=== PATIENT | male | born 1960 | race Caucasian/White ===

== ENCOUNTER 2021-06-13 20:23 | Inpatient (IN) | payer OTHER ==
[~2021-06-13] VITALS: Ht 175.3 cm; Wt 85.4 kg
[~2021-06-13 20:23] MED LIST: ALBU90OI INH; ASPI81CH PO; Augmentin 875-1 EACH PO; CHOL10002 PO; CITA20 PO; Colace100 MG PO; DOC250 PO; FINA5 PO; GABA300 PO; IBUP600 PO; Lisinopril2.5 MG PO; MORP15ER PO; OXYC5 PO; Percocet 7.5-31 EACH PO; SENN187 PO; Vitamin B-121000 MCG PO; Zofran Odt4 MG SL
[2021-06-13 20:56] LABS: BASOPHILS ABSOLUTE AUTO 0.03 K/mm3 (0.00-0.23); BASOPHILS PERCENT AUTO 0 % (0-2); EOSINOPHILS PERCENT AUTO 0 % (0-6); Hematocrit 47.8 % (37.0-53.0); Hemoglobin 16.8 g/dL (13.5-17.5); IMMATURE GRAN ABSOLUTE AUTO 0.06 K/mm3 (0.00-0.10); IMMATURE GRAN PERCENT AUTO 0 % (0-1); LYMPHOCYTES ABSOLUTE AUTO 1.09 K/mm3 (0.84-5.20); LYMPHOCYTES PERCENT AUTO 8 % (21-46); MONOCYTES ABSOLUTE AUTO 1.08 K/mm3 (0.16-1.47); MONOCYTES PERCENT AUTO 7 % (4-13); Mean Corpuscular HGB 31.4 pg (26.0-34.0); Mean Corpuscular HGB Conc 35.1 g/dL (31.5-36.5); Mean Corpuscular Volume 89 fL (80-100); Mean Platelet Volume 10.7 fL (9.1-12.4); NEUTROPHILS ABSOLUTE AUTO 12.28 K/mm3 (1.96-9.15); NEUTROPHILS PERCENT AUTO 85 % (41-73); Platelet Count 283 K/mm3 (150-400); RDW Coefficient Variation 11.6 % (11.7-14.2); RDW Standard Deviation 37.7 fL (35.1-46.3); Red Blood Cell Count 5.35 M/mm3 (4.30-5.90); White Blood Cell Count 14.54 K/mm3 (4.00-11.30)
[2021-06-13 21:03] LABS: Source, Urine Catheter
[2021-06-13 21:09] LABS: Appearance, Urine Cloudy (Clear); Bilirubin, Urine Neg (Neg); Blood, Urine 2+ (Neg); Color, Urine Yellow (P-Yellow); Glucose Qualitative, Urine Neg (Neg); Ketones, Urine 1+ (Neg); Leukocyte Esterase, Urine 3+ (Neg); Nitrite, Urine Neg (Neg); Protein, Urine 2+ (Neg); Specific Gravity, Urine 1.015 (1.003-1.022); Urobilinogen, Urine NORM (Normal)
[2021-06-13 21:15] LABS: Alanine Aminotransfer (ALT/SGP 85 U/L (12-78); Albumin/Globulin Ratio 0.7 (0.8-1.8); Alk Phos 103 U/L (50-136); Anion Gap 9 mmol/L (6-16); Aspartate Aminotrans (AST/SGOT 240 U/L (12-37); Bilirubin, Total 0.8 mg/dL (0.1-1.0); Blood Urea Nitrogen 20 mg/dL (8-24); Bun/Creatinine Ratio 23.5 (12.0-20.0); CO2, Blood 26 mmol/L (21-32); Calcium, Blood 9.6 mg/dL (8.5-10.1); Chloride, Blood 100 mmol/L (98-108); Creatinine, Blood 0.85 mg/dL (0.60-1.20); Globulin, Blood 5.4 g/dL (2.2-4.0); Glomerular Filtration Rate >60 (60-); Glucose, Blood 125 mg/dL (70-99); Potassium, Blood 4.5 mmol/L (3.5-5.5); Sodium, Blood 135 mmol/L (136-145); Total Protein, Blood 9.4 g/dL (6.4-8.2)
[2021-06-13 21:21] LABS: Amorphous Mod (0-Heavy); Bacteria Many /hpf; Granular Casts Rare /lpf (0); Red Blood Cells, Urine 0-2 /hpf (0-2); Squamous Epithelial Cells Few /hpf (Few)
[2021-06-13 21:55] LABS: Creatine Kinase MB 215.3 ng/mL (0.0-3.6)
[2021-06-13 22:40] LABS: Creatine Kinase MB Index 1.4 (0.0-4.0)
--- NOTE | 2021-06-14 06:41 | NUR ---
PT ARRIVED TO THE UNIT AND WASA TRANSFERED TO PCU BED. PT WAS ALERT AND ABLE TO PROVIDE SOME OF HIS HISTORY BUT WAS NOT SURE ON WHAT MEDICATIONS HE TAKES. PT HAS DIFFICULTY EXPRESSING HIMSELF VERBALLY AND BECOMES FRUSTRATED. PT HAS SCATTERED WOUND AND SEVERELY SWOLLEN LLE. PT HAS MAINTAINED O2 SATS >92% ON RM AIR. WILL REPORT TO ONCOMING RN.
[2021-06-14 07:11] LABS: Anion Gap 10 mmol/L (6-16); Blood Urea Nitrogen 25 mg/dL (8-24); Bun/Creatinine Ratio 21.7 (12.0-20.0); CO2, Blood 23 mmol/L (21-32); Chloride, Blood 103 mmol/L (98-108); Creatinine, Blood 1.15 mg/dL (0.60-1.20); Glomerular Filtration Rate >60 (60-); Glucose, Blood 135 mg/dL (70-99); Potassium, Blood 4.3 mmol/L (3.5-5.5); Sodium, Blood 136 mmol/L (136-145)
[2021-06-14 07:12] LABS: Calcium, Blood 9.1 mg/dL (8.5-10.1)
[2021-06-14 07:19] LABS: BASOPHILS ABSOLUTE AUTO 0.03 K/mm3 (0.00-0.23); BASOPHILS PERCENT AUTO 0 % (0-2); EOSINOPHILS PERCENT AUTO 0 % (0-6); Hematocrit 49.2 % (37.0-53.0); IMMATURE GRAN ABSOLUTE AUTO 0.08 K/mm3 (0.00-0.10); IMMATURE GRAN PERCENT AUTO 1 % (0-1); LYMPHOCYTES ABSOLUTE AUTO 1.16 K/mm3 (0.84-5.20); LYMPHOCYTES PERCENT AUTO 8 % (21-46); MONOCYTES PERCENT AUTO 11 % (4-13); Mean Corpuscular HGB 31.4 pg (26.0-34.0); Mean Corpuscular HGB Conc 34.6 g/dL (31.5-36.5); Mean Corpuscular Volume 91 fL (80-100); Mean Platelet Volume 11.1 fL (9.1-12.4); NEUTROPHILS ABSOLUTE AUTO 11.02 K/mm3 (1.96-9.15); NEUTROPHILS PERCENT AUTO 80 % (41-73); Platelet Count 241 K/mm3 (150-400); RDW Coefficient Variation 11.9 % (11.7-14.2); RDW Standard Deviation 39.2 fL (35.1-46.3); Red Blood Cell Count 5.42 M/mm3 (4.30-5.90); White Blood Cell Count 13.79 K/mm3 (4.00-11.30)
[2021-06-14 16:43] LABS: SARS-Cov-2 (COVID-19) PCR, MMC NEGATIVE (NEGATIVE)
--- NOTE | 2021-06-14 17:35 | NUR ---
SHIFT SUMMARY; ASSUMED CARE AT 0700, REPORT FROM BRITANY. Rene/Rene/OX4 DURING SHIFT. EXRESIVE DYSPHAGIA AT TIMES DUE TO PREVIOUS CVA. NS INFUSING AT 100ML/HR, NAVAS CATH IN PLACE DRAINING TEA COLORED URINE. SCABS/SCRAPES TO SCALP OPEN TO AIR, LEFT LEG SWOLLEN FROM HIP TO FOOT. LAURENT DUPLEX COMPLETE TODAY. OPEN RAW SORES BILATERALLY ON LEGS AND LEFT INNER THIGH FROM FALL AT HOME. MOVES RIGHT LEG ALTHOUGH WEAK. DIFFICULTY LIFTING LEFT LEG. MOVES BILATERAL ARMS. ASSISTED WITH REPOSITIONING DURING SHIFT. NO ACUTE CHANGES DURING SHIFT. WILL CONTINUE TO MONITOR AND TREAT UNTIL CHANGE OF SHIFT.
[2021-06-14] MEDS ORDERED: NAPROXEN250 M1 PO (20:46)
[2021-06-14] MEDS ORDERED: NITR100CA PO (20:47)
[2021-06-14] MEDS ORDERED: MIRALAX17 GM PO (20:49)
[2021-06-15 03:55] LABS: BASOPHILS ABSOLUTE AUTO 0.03 K/mm3 (0.00-0.23); BASOPHILS PERCENT AUTO 0 % (0-2); EOSINOPHILS ABSOLUTE AUTO 0.04 K/mm3 (0.00-0.68); EOSINOPHILS PERCENT AUTO 0 % (0-6); Hematocrit 41.2 % (37.0-53.0); Hemoglobin 14.1 g/dL (13.5-17.5); IMMATURE GRAN ABSOLUTE AUTO 0.05 K/mm3 (0.00-0.10); IMMATURE GRAN PERCENT AUTO 1 % (0-1); LYMPHOCYTES ABSOLUTE AUTO 2.14 K/mm3 (0.84-5.20); LYMPHOCYTES PERCENT AUTO 21 % (21-46); MONOCYTES ABSOLUTE AUTO 1.51 K/mm3 (0.16-1.47); MONOCYTES PERCENT AUTO 15 % (4-13); Mean Corpuscular HGB Conc 34.2 g/dL (31.5-36.5); Mean Corpuscular Volume 91 fL (80-100); Mean Platelet Volume 10.7 fL (9.1-12.4); NEUTROPHILS ABSOLUTE AUTO 6.57 K/mm3 (1.96-9.15); NEUTROPHILS PERCENT AUTO 64 % (41-73); Platelet Count 220 K/mm3 (150-400); RDW Coefficient Variation 11.9 % (11.7-14.2); RDW Standard Deviation 39.3 fL (35.1-46.3); Red Blood Cell Count 4.55 M/mm3 (4.30-5.90); White Blood Cell Count 10.34 K/mm3 (4.00-11.30)
[2021-06-15 04:25] LABS: Alanine Aminotransfer (ALT/SGP 79 U/L (12-78); Albumin, Blood 2.3 g/dL (3.4-5.0); Alk Phos 67 U/L (50-136); Anion Gap 8 mmol/L (6-16); Aspartate Aminotrans (AST/SGOT 122 U/L (12-37); Bilirubin, Total 0.4 mg/dL (0.1-1.0); Blood Urea Nitrogen 36 mg/dL (8-24); Bun/Creatinine Ratio 31.6 (12.0-20.0); CO2, Blood 23 mmol/L (21-32); Calcium, Blood 8.1 mg/dL (8.5-10.1); Chloride, Blood 103 mmol/L (98-108); Creatinine, Blood 1.14 mg/dL (0.60-1.20); Glomerular Filtration Rate >60 (60-); Glucose, Blood 131 mg/dL (70-99); Magnesium, Blood 2.1 mg/dL (1.6-2.4); Phosphorus, Blood 3.1 mg/dL (2.5-4.9); Potassium, Blood 4.1 mmol/L (3.5-5.5); Sodium, Blood 134 mmol/L (136-145)
[2021-06-15 04:27] LABS: Albumin/Globulin Ratio 0.6 (0.8-1.8); Globulin, Blood 3.9 g/dL (2.2-4.0)
[2021-06-15 04:28] LABS: Total Protein, Blood 6.2 g/dL (6.4-8.2)
--- NOTE | 2021-06-15 07:41 | NUR ---
SHIFT SUMMARY PT AOX4, ABLE TO VERBALIZE NEEDS AND CALL WHEN IN NEED OF ASSISTANCE. REBECCA DAVILA SPEECH, THIS RN ABLE TO UNDERSTAND BY ASKING PT TO REPEAT, PT SPEAKS MORE CLEARLY WHEN REPEATING QUESTIONS OR COMMENTS OR WHEN APPEARING FRUSTRATED. ON TELE, SINUS TACH W/BBB 90'S-110'S THROUGH SHIFT. PT C/O "MUSCLE PAINS". THIS RN ENCOURAGES PT TO REPOSITION, PT DIFFICULT TO REPOSITION TO L SIDE D/T WOUND TO L LEG, REPOSITIONED FROM BACK TO R SIDE THROUGH NIGHT. FOAM DRESSING APPLIED TO L SIDE MID BACK IN THORACIC AREA D/T PALM SIZED AREA OF REDNESS AND PAIN POSSIBLY D/T SOME PRESSURE TO BACK FROM INITIAL 24 HRS DOWN. PT HAS CONDOM CATH IN PLACE DRAINING MELISSA URINE D/T INCONTINENCE. VSS. IV INFUSING NS PER ORDERS.
--- NOTE | 2021-06-15 08:40 | NUR ---
NURSING PCU DAYSHIFT: Assumed care of pt at approx 0700. A/O, pleasant, cooperative w/care. Noted deficits r/t hx of CVA. Limited ROM of ROSEANN and LLE, all ext's weak, mild R facial droop. Slurred/garbled speed, able to swallow w/o difficulty. Skin is fragile, several abrasions r/t recent fall, blister on L thigh, reddened pressure points dressed w/mepilex, scattered bruising. C/O chronic pain "all over" and increased pain to L shoulder r/t home fall. Tele in place, NSR/ST 100-110, no c/o CP/pressure, SBP 104, trace edema of LLE, pulses palp. L/S dim though cta, denies dyspnea, no noted cough, O2 sat upper 90's on RA. Abd SNT, BT+, condom cath in place draining abdiel urine. PIV x1, s/l. Pt requests contacting [facility] for recent [facility], denies other needs at this time. Sitting up in bed eating breakfast, call light in reach. Awaiting rounding from PMD, cont to monitor for any changes.
[2021-06-15 12:23] LABS: Creatine Kinase MB Index 0.4 (0.0-4.0)
--- NOTE | 2021-06-15 12:45 | NUR ---
ASSUMED PATIENT CARE. NO SIGNS OF ACUTE DISTRESS. PT ALERT AND ORIENTED, COOPERATIVE WITH CARE. THIS RN AGREES WITH PREVIOUS SHIFT ASSESSMENT BY RENÉE JESUS. FABI.
--- NOTE | 2021-06-15 16:11 | NUR ---
REPORT GIVEN TO RENÉE JESUS.
--- NOTE | 2021-06-15 17:41 | NUR ---
NURSING PCU DAYSHIFT SUMMARY: No significant changes noted t/o the shift. Seen by PMD, new medication and lab d/o received. Lab and imaging results reviewed. Medication administered for improved pain management, pt appears to have rested comfortably this afternoon. Q2 hr turn schedule maintained for skin health and breakdown prevention. Pt denies any current needs, cont to monitor until rpt is given to NOC RN.
[2021-06-16 03:48] LABS: BASOPHILS ABSOLUTE AUTO 0.02 K/mm3 (0.00-0.23); BASOPHILS PERCENT AUTO 0 % (0-2); EOSINOPHILS ABSOLUTE AUTO 0.21 K/mm3 (0.00-0.68); EOSINOPHILS PERCENT AUTO 3 % (0-6); Hematocrit 29.1 % (37.0-53.0); IMMATURE GRAN ABSOLUTE AUTO 0.03 K/mm3 (0.00-0.10); IMMATURE GRAN PERCENT AUTO 0 % (0-1); LYMPHOCYTES ABSOLUTE AUTO 2.57 K/mm3 (0.84-5.20); LYMPHOCYTES PERCENT AUTO 33 % (21-46); MONOCYTES ABSOLUTE AUTO 0.93 K/mm3 (0.16-1.47); MONOCYTES PERCENT AUTO 12 % (4-13); Mean Corpuscular HGB 31.1 pg (26.0-34.0); Mean Corpuscular HGB Conc 34.4 g/dL (31.5-36.5); Mean Corpuscular Volume 90 fL (80-100); NEUTROPHILS ABSOLUTE AUTO 4.03 K/mm3 (1.96-9.15); NEUTROPHILS PERCENT AUTO 52 % (41-73); Platelet Count 164 K/mm3 (150-400); RDW Coefficient Variation 11.9 % (11.7-14.2); RDW Standard Deviation 39.6 fL (35.1-46.3); Red Blood Cell Count 3.22 M/mm3 (4.30-5.90); White Blood Cell Count 7.79 K/mm3 (4.00-11.30)
[2021-06-16 04:12] LABS: Alanine Aminotransfer (ALT/SGP 65 U/L (12-78); Albumin, Blood 1.9 g/dL (3.4-5.0); Albumin/Globulin Ratio 0.6 (0.8-1.8); Alk Phos 57 U/L (50-136); Anion Gap 4 mmol/L (6-16); Aspartate Aminotrans (AST/SGOT 114 U/L (12-37); Bilirubin, Total 0.3 mg/dL (0.1-1.0); Blood Urea Nitrogen 30 mg/dL (8-24); Bun/Creatinine Ratio 35.5 (12.0-20.0); CO2, Blood 24 mmol/L (21-32); Calcium, Blood 7.6 mg/dL (8.5-10.1); Chloride, Blood 104 mmol/L (98-108); Creatinine, Blood 0.84 mg/dL (0.60-1.20); Globulin, Blood 3.2 g/dL (2.2-4.0); Glomerular Filtration Rate >60 (60-); Glucose, Blood 107 mg/dL (70-99); Magnesium, Blood 1.9 mg/dL (1.6-2.4); Phosphorus, Blood 2.7 mg/dL (2.5-4.9); Potassium, Blood 4.1 mmol/L (3.5-5.5); Sodium, Blood 132 mmol/L (136-145); Total Protein, Blood 5.1 g/dL (6.4-8.2)
[2021-06-16 04:24] LABS: Creatine Kinase MB 9.8 ng/mL (0.0-3.6)
[2021-06-16 04:33] LABS: CPK Creatine Kinase 4536 U/L (39-308); Creatine Kinase MB Index 0.2 (0.0-4.0)
--- NOTE | 2021-06-16 07:42 | NUR ---
SHIFT SUMMARY PT AOX4, BREATHING EVEN AND UNLABORED. SINUS W/BBB 90'S. DENIES CP. C/O PAIN ALL OVER BODY FROM SITES OF INJURY FROM FALL. FOAM DRESSING IN PLACE ON SPINE AND APPLIED TO SACRUM PREVENTATIVE D/T SOME REDNESS TO SITES. BLISTER RUPTURED TO L THIGH IN NIGHT. BACITRACIN APPLIED TO SITES OF OPEN WOUNDS AND BLISTERS FROM FRICTION/SHEAR INJURIES FROM WHEN DOWN AT HOME. SATS 95-96% ON RA THROUGH SHIFT. MEDICATED PER NEW ORDERS FOR PAIN, PT REPORTS RELIEF FOLLOWING MEDICATION. RESTFUL THROUGH SHIFT. REPOSITIONED FOR COMFORT THROUGH SHIFT. UNABLE TO POSITION TO L SIDE D/T INJURIES TO LEG. PT REFUSED TO CONTINUE 100 ML/HR NS PER ORDER D/T AGITATION AND IRRITATION W/IV PUMP AND POSITIONAL IV. PT DRINKS SEVERAL CUPS OF ICE WATER DURING SHIFT. CONDOM CATH DRAINING MELISSA COLORED URINE.
[2021-06-16] MEDS ORDERED: Robaxin750 MG PO (12:15)
--- NOTE | 2021-06-16 14:23 | NUR ---
TRANSFERRED PT WAS TRANSFERRED TO MEDICAL FLOOR AT APPROXIMATELY 1420. PT LEFT WITH ONE KIKO IN THE LEFT AC, AND AWAITING A SECOND IV IN A PLACE WHERE HIS ARM BENDING WON'T INTERFERE WITH DELIVERY, AT THIS POINT WITH THE LEFT AC IV HE IS REFUSING IV FLUIDS. PT STABLE AT TIME OF TRANSFER. REPORT GIVEN TO EDIN VERAS
--- NOTE | 2021-06-16 19:39 | NUR ---
PT TRANSFERRED TO ROOM 357 APPROX 1530- A/OX3, ORIENTED TO ROOM SET UP AND CALL LIGHT. SET UP TELE. STARTED IV AND IVF. TURNED TO SIDE. CONDOM CATH IN PLACE AND PATENT.
--- NOTE | 2021-06-16 19:41 | NUR ---
SUMMARY- PT CONT ON IFV. TOLERATING FOOD AND PO FLUIDS WELL. ALERT AND COOPERATIVE. ROUTINE TURNS, BEDREST CURRENTLY. PT USES CALL LIGHT TO MAKE NEEDS KNOWN. PAIN MANAGED WITH VICODIN. REPORT TO JEFE ACEVEDO RN.
--- NOTE | 2021-06-17 04:26 | NUR ---
SHIFT SUMMARY: PT IS ALERT AND ORIENTED. PT IS CALM AND COOPERATIVE WITH CARE. PT CALLS APPROPRIATELY. PT IS W/C BOUND AT BASELINE R/T TO CVA, NOT OUT OF BED OVERNIGHT. REPOSITIONING NEEDED. PT REPORTS GENERALIZED PAIN, GAVE PRN NORCO. PT DENIES NAUSEA, VOMITING, AND SOB. NO ACUTE CHANGES OR COMPLICATIONS THIS SHIFT. BED IN LOW POSITION, CALL LIGHT WITHIN REACH. WILL REPORT TO DAY NURSE.
[2021-06-17 05:02] LABS: BASOPHILS ABSOLUTE AUTO 0.02 K/mm3 (0.00-0.23); BASOPHILS PERCENT AUTO 1 % (0-2); EOSINOPHILS ABSOLUTE AUTO 0.19 K/mm3 (0.00-0.68); EOSINOPHILS PERCENT AUTO 5 % (0-6); Hematocrit 22.7 % (37.0-53.0); Hemoglobin 7.7 g/dL (13.5-17.5); IMMATURE GRAN ABSOLUTE AUTO 0.03 K/mm3 (0.00-0.10); IMMATURE GRAN PERCENT AUTO 1 % (0-1); LYMPHOCYTES ABSOLUTE AUTO 1.34 K/mm3 (0.84-5.20); LYMPHOCYTES PERCENT AUTO 36 % (21-46); MONOCYTES ABSOLUTE AUTO 0.46 K/mm3 (0.16-1.47); MONOCYTES PERCENT AUTO 12 % (4-13); Mean Corpuscular HGB 31.4 pg (26.0-34.0); Mean Corpuscular HGB Conc 33.9 g/dL (31.5-36.5); Mean Corpuscular Volume 93 fL (80-100); Mean Platelet Volume 10.9 fL (9.1-12.4); NEUTROPHILS ABSOLUTE AUTO 1.68 K/mm3 (1.96-9.15); NEUTROPHILS PERCENT AUTO 45 % (41-73); Platelet Count 143 K/mm3 (150-400); RDW Coefficient Variation 12.1 % (11.7-14.2); RDW Standard Deviation 40.6 fL (35.1-46.3); Red Blood Cell Count 2.45 M/mm3 (4.30-5.90); White Blood Cell Count 3.72 K/mm3 (4.00-11.30)
[2021-06-17 05:57] LABS: Albumin, Blood 1.8 g/dL (3.4-5.0); Anion Gap 5 mmol/L (6-16); Blood Urea Nitrogen 23 mg/dL (8-24); Bun/Creatinine Ratio 26.7 (12.0-20.0); CO2, Blood 28 mmol/L (21-32); Calcium, Blood 7.5 mg/dL (8.5-10.1); Chloride, Blood 108 mmol/L (98-108); Creatinine, Blood 0.86 mg/dL (0.60-1.20); Glomerular Filtration Rate >60 (60-); Glucose, Blood 118 mg/dL (70-99); Magnesium, Blood 1.9 mg/dL (1.6-2.4); Phosphorus, Blood 3.7 mg/dL (2.5-4.9); Potassium, Blood 3.6 mmol/L (3.5-5.5); Sodium, Blood 141 mmol/L (136-145)
[2021-06-17 06:03] LABS: CPK Creatine Kinase 3989 U/L (39-308); Creatine Kinase MB Index 0.1 (0.0-4.0)
--- NOTE | 2021-06-17 18:07 | NUR ---
SHIFT SUMMARY PT AWAKE DURING SHIFT REPORT. PT REPORTED CONDOM CATH REMOVED AND WANTED IT REPLACED. PRACTICE MANAGER'S ASSISTED PT WITH LINEN CHANGE AND REPLACING CONDOM CATH. PT ENCOURAGED NOT TO PULL IT OFF AGAIN. SKIN BREAK DOWN BETWEEN THIGHS IN CHARISSE AREA. PETROLEUM DRSG PLACED ON BROKEN BLISTERS FOR BARRIER. PT MEDICATED PER EMAR FOR C/O PAIN TO LLE. L LEG SWOLLEN, ALMOST TWICE IN COMPARISON TO R LEG. BLE'S ELEVATED ON PILLOWS AT ALL TIMES, EXCEPT WHEN WORKING WITH THERAPY. PT WAS CO-OP WITH PT/OT TODAY AND ABLE TO STAND AT BS WITH 2P ASSIST USING GB. SR PER TELE MX. L SIDED WEAKNESS R/T HX OF CVA. CALL LT IN REACH. ABLE TO MAKE NEEDS KNOWN.
[2021-06-18 04:52] LABS: BASOPHILS ABSOLUTE AUTO 0.02 K/mm3 (0.00-0.23); BASOPHILS PERCENT AUTO 1 % (0-2); EOSINOPHILS ABSOLUTE AUTO 0.34 K/mm3 (0.00-0.68); EOSINOPHILS PERCENT AUTO 8 % (0-6); Hematocrit 24.6 % (37.0-53.0); Hemoglobin 8.2 g/dL (13.5-17.5); IMMATURE GRAN ABSOLUTE AUTO 0.05 K/mm3 (0.00-0.10); IMMATURE GRAN PERCENT AUTO 1 % (0-1); LYMPHOCYTES ABSOLUTE AUTO 1.45 K/mm3 (0.84-5.20); LYMPHOCYTES PERCENT AUTO 35 % (21-46); MONOCYTES ABSOLUTE AUTO 0.55 K/mm3 (0.16-1.47); MONOCYTES PERCENT AUTO 13 % (4-13); Mean Corpuscular HGB 31.2 pg (26.0-34.0); Mean Corpuscular HGB Conc 33.3 g/dL (31.5-36.5); Mean Corpuscular Volume 94 fL (80-100); Mean Platelet Volume 9.9 fL (9.1-12.4); NEUTROPHILS ABSOLUTE AUTO 1.74 K/mm3 (1.96-9.15); NEUTROPHILS PERCENT AUTO 42 % (41-73); Platelet Count 162 K/mm3 (150-400); RDW Coefficient Variation 12.3 % (11.7-14.2); RDW Standard Deviation 41.9 fL (35.1-46.3); Red Blood Cell Count 2.63 M/mm3 (4.30-5.90); White Blood Cell Count 4.15 K/mm3 (4.00-11.30)
[2021-06-18 05:28] LABS: Creatine Kinase MB 3.3 ng/mL (0.0-3.6); Magnesium, Blood 1.8 mg/dL (1.6-2.4)
[2021-06-18 05:29] LABS: Alanine Aminotransfer (ALT/SGP 71 U/L (12-78); Albumin, Blood 1.9 g/dL (3.4-5.0); Albumin/Globulin Ratio 0.6 (0.8-1.8); Alk Phos 63 U/L (50-136); Anion Gap 4 mmol/L (6-16); Aspartate Aminotrans (AST/SGOT 92 U/L (12-37); Bilirubin, Total 0.7 mg/dL (0.1-1.0); Blood Urea Nitrogen 14 mg/dL (8-24); Bun/Creatinine Ratio 19.9 (12.0-20.0); CO2, Blood 29 mmol/L (21-32); Calcium, Blood 7.7 mg/dL (8.5-10.1); Chloride, Blood 106 mmol/L (98-108); Globulin, Blood 3.2 g/dL (2.2-4.0); Glomerular Filtration Rate >60 (60-); Glucose, Blood 85 mg/dL (70-99); Phosphorus, Blood 3.6 mg/dL (2.5-4.9); Sodium, Blood 139 mmol/L (136-145); Total Protein, Blood 5.1 g/dL (6.4-8.2)
[2021-06-18 05:33] LABS: CPK Creatine Kinase 2394 U/L (39-308); Creatine Kinase MB Index 0.1 (0.0-4.0)
--- NOTE | 2021-06-18 06:51 | NUR ---
PATIENT SLEPT MOST OF NIGHT. VERY WEAK AND STIFF IN BOTH LOWER EXTREMETIES. DRESSING ON LEFT UPPER AND INNER THIGH CHANGED THIS MORNING DUE TO EXCESSIVE DRAINAGE AFTER REPOSITIONING THIS MORNING. AFTER CLEANSING WITH WOUND WASH, AREA WAS DRIED AND COVERED WITH XEROFORM GAUZE THEN AN EXU-DRY. IT APPEARS THAT ALL BLISTERS ARE OPEN EXCEPT A VERY LARGE ONE ON THE ANTERIOR THIGH THAT IS STILL INTACT. PATIENT DRANK 3 GLASSES OF WARM PRUNE JUICE AT BEDTIME, BUT WAS STILL NOT ABLE TO HAVE A BOWEL MOVEMENT. REFUSING ANY MORE MIRALAX.
--- NOTE | 2021-06-18 17:24 | NUR ---
SUMMARY PT SITTING UP IN BED WATCHING TV, HAS BEEN PLEASANT AND COOPERATIVE WITH CARE, WORKED WITH PT/OT, ABLE TO STAND WITH 2P ASSIST AND A WALKER, PT UP TO THE COMMODE, NO BM, BOWEL CARE GIVEN, PT MED PER EMAR FOR PAIN AND SPASMS, VSS, WILL CONT TO MONITOR
--- NOTE | 2021-06-18 22:41 | NUR ---
patient had extra large formed bowel movement on bedside commode this evening.
--- NOTE | 2021-06-19 05:39 | NUR ---
JAS HAD A GOOD NIGHT'S SLEEP AFTER HAVING AN EXTREMELY LARGE FORMED BOWEL MOVEMENT EARLY IN THE EVENING. PAIN COMTROLLED WITH COMBINATION OF TORADOL AND NORCO WELL HIS USUAL ANTI SPOSMODICS. HE IS ALERT AND ORIENTED x4, CONDOM CATH REPLACED AROUND 2200 WITHOUT DIFFICULTLY. PATIENT TOLERATED WELL. LARGE BLISTER DRESSING STAYED DRY OVERNIGHT, AND THEREFORE WAS NOT CHANGED.
--- NOTE | 2021-06-19 17:04 | NUR ---
SUMMARY PT SITTING UP IN BED VISITING WITH A FRIEND, PT HAS BEEN PLEASANT AND COOPERATIVE T/O THE DAY, MED PER EMAR FOR PAIN, DRESSING CHANGED TO THE L LEG, PT JOSE WELL, PT UP TO THE COMMODE WITH 2P ASSIST, NO RESULTS, PT BACK TO BED WITH 2 P ASSIST, VSS, WILL CONT TO MONITOR
[2021-06-20 04:47] LABS: BASOPHILS ABSOLUTE AUTO 0.02 K/mm3 (0.00-0.23); BASOPHILS PERCENT AUTO 0 % (0-2); EOSINOPHILS ABSOLUTE AUTO 0.43 K/mm3 (0.00-0.68); EOSINOPHILS PERCENT AUTO 7 % (0-6); Hematocrit 26.2 % (37.0-53.0); Hemoglobin 8.6 g/dL (13.5-17.5); IMMATURE GRAN ABSOLUTE AUTO 0.12 K/mm3 (0.00-0.10); IMMATURE GRAN PERCENT AUTO 2 % (0-1); LYMPHOCYTES ABSOLUTE AUTO 0.93 K/mm3 (0.84-5.20); LYMPHOCYTES PERCENT AUTO 14 % (21-46); MONOCYTES ABSOLUTE AUTO 0.65 K/mm3 (0.16-1.47); MONOCYTES PERCENT AUTO 10 % (4-13); Mean Corpuscular HGB 31.4 pg (26.0-34.0); Mean Corpuscular HGB Conc 32.8 g/dL (31.5-36.5); Mean Corpuscular Volume 96 fL (80-100); Mean Platelet Volume 10.4 fL (9.1-12.4); NEUTROPHILS ABSOLUTE AUTO 4.36 K/mm3 (1.96-9.15); NEUTROPHILS PERCENT AUTO 67 % (41-73); Platelet Count 199 K/mm3 (150-400); RDW Coefficient Variation 13.5 % (11.7-14.2); Red Blood Cell Count 2.74 M/mm3 (4.30-5.90); White Blood Cell Count 6.51 K/mm3 (4.00-11.30)
[2021-06-20 05:09] LABS: Anion Gap 5 mmol/L (6-16); Blood Urea Nitrogen 14 mg/dL (8-24); Bun/Creatinine Ratio 21.3 (12.0-20.0); CO2, Blood 29 mmol/L (21-32); CPK Creatine Kinase 997 U/L (39-308); Calcium, Blood 8.1 mg/dL (8.5-10.1); Chloride, Blood 105 mmol/L (98-108); Creatinine, Blood 0.66 mg/dL (0.60-1.20); Glomerular Filtration Rate >60 (60-); Glucose, Blood 96 mg/dL (70-99); Potassium, Blood 4.3 mmol/L (3.5-5.5); Sodium, Blood 139 mmol/L (136-145)
--- NOTE | 2021-06-20 05:48 | NUR ---
patient uncomfortable and restless overnight. very heavy to move in the bed. Spoke with hot car charger about lift room or at least one of the green lift sheets to prevent the patient or/and staff from being hurt. left thigh wound looks much improved since Sunday night. Skin is much improved, Large blister has receded and is now pale pink instead of red. yellow petroleum gauze again under exo dry pad was used for dressing. Patient is putting out large amounts of urine now and is asking about stopping the IV fluids. CK is 997 this morning
[2021-06-20 11:24] LABS: SARS-Cov-2 (COVID-19) PCR, MMC NEGATIVE (NEGATIVE)
[2021-06-20] MEDS ORDERED: ACET325 PO (11:59)
[2021-06-20] MEDS ORDERED: ALBU90OI INH (11:59)
[2021-06-20] MEDS ORDERED: CALCIUM CARBON500 M1 PO (12:00)
[2021-06-20] MEDS ORDERED: BACITO TOP (12:00)
[2021-06-20] MEDS ORDERED: VISBIOME 112.51 EACH PO (12:00)
[2021-06-20] MEDS ORDERED: Norco 5-325 Ta1 EACH PO (12:00)
[2021-06-20] MEDS ORDERED: ONDA4ODT MM (12:20)
--- NOTE | 2021-06-20 14:25 | NUR ---
PATIENT DISCHARGE: PATIENT DISCHARGE / XFR TO [facility] THIS SHIFT. MEDICATION RECONCILIATION COMPLETED; MED LIST PROVIDED IN D/C PACKET. PATIENT TRANSPORTED TO [facility] BY [facility]; PATIENT DEPARTED MED FLOOR AT 1405. REPORT GIVEN TO JIM SANCHEZ, AT [facility].
== END 2021-06-20 14:02 | DRG 698 ==
LOC: ER 20:23 → SURS 20:24 → ER 06-14 00:30 → PCU 06-14 00:30 → SURS 06-14 07:09 → PCU 06-14 07:09 → MEDS 06-16 14:24 → ENPENDDIS 06-20 11:08 → MEDS 06-20 14:02
PROVIDERS: Emergency Medicine; Family Medicine; Internal Medicine; ADMIT Family Medicine
DX: T83.518A Infection and inflammatory reaction due to other urinary catheter, initial encounter (principal); A41.9 Sepsis, unspecified organism; N39.0 Urinary tract infection, site not specified; E87.1 Hypo-osmolality and hyponatremia; I69.354 Hemiplegia and hemiparesis following cerebral infarction affecting left non-dominant side; G93.40 Encephalopathy, unspecified; T79.6XXA Traumatic ischemia of muscle, initial encounter; G89.29 Other chronic pain; M54.9 Dorsalgia, unspecified; I69.328 Other speech and language deficits following cerebral infarction; Z99.3 Dependence on wheelchair; S00.81XA Abrasion of other part of head, initial encounter; S80.812A Abrasion, left lower leg, initial encounter; S80.811A Abrasion, right lower leg, initial encounter; W05.0XXA Fall from non-moving wheelchair, initial encounter; J44.9 Chronic obstructive pulmonary disease, unspecified; Z88.8 Allergy status to other drugs, medicaments and biological substances; F32.9 Major depressive disorder, single episode, unspecified; Z20.822 Contact with and (suspected) exposure to COVID-19
CPT/HCPCS: 36415; 70450; 71046; 72125; 72170; 73030; 80048; 80053; 80069; 81001; 82550; 82553; 83605; 83735; 84100; 84443; 85018; 85025; 85651; 86140; 87040; 87086; 93005; 93010; 93971; 94640; 94664; 94760; 97110; 97112; 97162; 97166; 97530; 99285-25; A9270; J0696; J1650; J1885; J2270; J2405; J7030; U0004

== ENCOUNTER 2022-11-14 18:08 | Emergency (ER) | payer OTHER ==
[~2022-11-14] VITALS: Ht 162.6 cm; Wt 99.8 kg
[~2022-11-14 18:08] MED LIST changes: +ACET325 PO; +BACITO TOP; +CALCIUM CARBON500 M1 PO; +LIDO700A20 TOP; +MIRALAX17 GM PO; +NAPROXEN250 M1 PO; +NITR100CA PO; +Norco 5-325 Ta1 EACH PO; +ONDA4ODT MM; +Robaxin750 MG PO; +VISBIOME 112.51 EACH PO; +Voltaren100 GM TOP
[2022-11-14 18:37] LABS: BASOPHILS ABSOLUTE AUTO 0.04 K/mm3 (0.00-0.23); BASOPHILS PERCENT AUTO 1 % (0-2); EOSINOPHILS ABSOLUTE AUTO 0.26 K/mm3 (0.00-0.68); EOSINOPHILS PERCENT AUTO 4 % (0-6); Hematocrit 43.8 % (37.0-53.0); Hemoglobin 15.5 g/dL (13.5-17.5); IMMATURE GRAN ABSOLUTE AUTO 0.02 K/mm3 (0.00-0.10); IMMATURE GRAN PERCENT AUTO 0 % (0-1); LYMPHOCYTES ABSOLUTE AUTO 1.37 K/mm3 (0.84-5.20); LYMPHOCYTES PERCENT AUTO 23 % (21-46); MONOCYTES ABSOLUTE AUTO 0.54 K/mm3 (0.16-1.47); MONOCYTES PERCENT AUTO 9 % (4-13); Mean Corpuscular HGB 32.3 pg (26.0-34.0); Mean Corpuscular HGB Conc 35.4 g/dL (31.5-36.5); Mean Corpuscular Volume 91 fL (80-100); Mean Platelet Volume 10.3 fL (9.1-12.4); NEUTROPHILS ABSOLUTE AUTO 3.65 K/mm3 (1.96-9.15); NEUTROPHILS PERCENT AUTO 62 % (41-73); Platelet Count 191 K/mm3 (150-400); RDW Coefficient Variation 11.4 % (11.7-14.2); RDW Standard Deviation 38.6 fL (35.1-46.3); White Blood Cell Count 5.88 K/mm3 (4.00-11.30)
[2022-11-14 18:57] LABS: Albumin, Blood 3.9 g/dL (3.4-5.0); Albumin/Globulin Ratio 0.8 (0.8-1.8); Bilirubin, Total 0.6 mg/dL (0.1-1.0); Bun/Creatinine Ratio 22.3 (12.0-20.0); Calcium, Blood 9.2 mg/dL (8.5-10.1); Creatinine, Blood 0.76 mg/dL (0.60-1.20); Globulin, Blood 4.7 g/dL (2.2-4.0); Potassium, Blood 4.4 mmol/L (3.5-5.5); Total Protein, Blood 8.6 g/dL (6.4-8.2)
== END 2022-11-14 23:34 | disposition home or self-care (01) ==
LOC: ER 18:08
PROVIDERS: Emergency Medicine
DX: R07.9 Chest pain, unspecified (principal); Z87.891 Personal history of nicotine dependence; Z79.82 Long term (current) use of aspirin
CPT/HCPCS: 36415; 71046; 80053; 84484; 85025; 93005; 93010